=== PATIENT | female | born 1970 | race Caucasian/White ===

== ENCOUNTER 2019-05-07 05:15 | Emergency (ER) | payer SELFPAY ==
[~2019-05-07] VITALS: Ht 162.6 cm; Wt 82.6 kg
[2019-05-07 05:20] VITALS: Ht 162.6 cm; Wt 82.6 kg
[2019-05-07 06:00] VITALS: BP 159/73
== END 2019-05-07 06:00 | disposition home or self-care (01) ==
LOC: ED 05:15
DX: Z76.0 Encounter for issue of repeat prescription (principal); I10 Essential (primary) hypertension

== ENCOUNTER 2020-06-18 07:45 | Emergency (ER) | payer MEDICAID ==
[~2020-06-18] VITALS: Ht 162.6 cm; Wt 91.2 kg
[2020-06-18 07:49] VITALS: BP 130/72; Ht 162.6 cm; Wt 91.2 kg
== END 2020-06-18 08:14 | disposition home or self-care (01) ==
LOC: ED 07:45
DX: Z76.0 Encounter for issue of repeat prescription (principal); I10 Essential (primary) hypertension
CPT/HCPCS: J2001

== ENCOUNTER 2020-08-07 09:58 | Emergency (ER) | payer MEDICAID ==
[~2020-08-07] VITALS: Ht 162.6 cm; Wt 84.4 kg
[2020-08-07 10:18] VITALS: Ht 162.6 cm; Wt 84.4 kg
[2020-08-07 11:30] VITALS: BP 114/68
== END 2020-08-07 11:30 | disposition home or self-care (01) ==
LOC: ED 09:58
DX: S09.90XA Unspecified injury of head, initial encounter (principal); I10 Essential (primary) hypertension; M19.90 Unspecified osteoarthritis, unspecified site; Z76.0 Encounter for issue of repeat prescription; X58.XXXA Exposure to other specified factors, initial encounter; Y93.89 Activity, other specified; Y92.89 Other specified places as the place of occurrence of the external cause; Y99.8 Other external cause status